=== PATIENT | male | born 1975 | race Caucasian/White ===

== ENCOUNTER 2022-05-28 13:36 | Emergency (ER) | payer MEDICAID ==
[~2022-05-28] VITALS: Ht 185.4 cm; Wt 62.7 kg
[2022-05-28 13:43] VITALS: BP 109/72
[2022-05-28] MEDS ORDERED: BENZ-38 PO (14:19)
[2022-05-28] MEDS ORDERED: PRED20TA PO (14:19)
[2022-05-28] MEDS ORDERED: DOXY100C76 PO (14:19)
[2022-05-28] MEDS ORDERED: AZIT-83 PO (14:19)
== END 2022-05-28 14:28 | disposition home or self-care (01) ==
LOC: ER 13:37
DX: J18.9 Pneumonia, unspecified organism (principal); R50.9 Fever, unspecified; Z88.0 Allergy status to penicillin
CPT/HCPCS: 71045; 99283